=== PATIENT | male | born 2000 | race Two or more races ===

== ENCOUNTER 2024-03-25 09:12 | Emergency (ER) | payer SELFPAY ==
[~2024-03-25] VITALS: Ht 162.6 cm; Wt 69.8 kg
[2024-03-25 10:37] VITALS: BP 125/79; PULSE 74; RESP 18; TEMP 98.4; O2SAT 99
[2024-03-25] MEDS ORDERED: AMOX875T3 PO (11:23)
[2024-03-25] MEDS ORDERED: IBUP-1456 PO (11:23)
== END 2024-03-25 11:27 | disposition home or self-care (01) ==
LOC: ER 09:12
DX: S16.1XXA Strain of muscle, fascia and tendon at neck level, initial encounter (principal); H66.92 Otitis media, unspecified, left ear; Z79.1 Long term (current) use of non-steroidal anti-inflammatories (NSAID); Z79.2 Long term (current) use of antibiotics; X58.XXXA Exposure to other specified factors, initial encounter; Y93.89 Activity, other specified; Y92.89 Other specified places as the place of occurrence of the external cause; Y99.8 Other external cause status
CPT/HCPCS: 72040

== ENCOUNTER 2024-08-08 08:46 | Emergency (ER) | payer MEDICAID, OTHER ==
[~2024-08-08] VITALS: Ht 165.1 cm; Wt 69.8 kg
[~2024-08-08 08:46] MED LIST: AMOX875T3 PO; IBUP-1456 PO
[2024-08-08 09:16] LABS: Basophils # (auto) 0 10 ^3/uL (0-0.2); Basophils % (auto) 0.6 % (0.0-2.0); Eosinophils # (auto) 0 10 ^3/uL (0-0.8); Eosinophils % (auto) 1.4 % (0.0-7.0); Hemoglobin 17.5 g/dL (13.5-17.5); Lymphocytes # (auto) 1.1 10 ^3/uL (0.4-5.4); Mean Corpuscular Hemoglobin 33.6 pg (28.0-32.0); Mean Corpuscular Hgb Conc. 35.8 g/dL (32.0-36.0); Mean Corpuscular Volume 93.8 fL (80.0-100.0); Monocytes # (auto) 0.4 10 ^3/uL (0-1.3); Monocytes % (auto) 10.8 % (0.0-12.0); Neutrophils # (auto) 2.1 10 ^3/uL (1.6-8.6); Neutrophils % (auto) 57.2 % (37.0-80.0); Nucleated Red Blood Cells % 0.1 %; Platelet Count (auto) 134 10^3/uL (140-450); Red Blood Cells 5.22 10^6/uL (4.5-5.90); Red Cell Distribution Width 12.6 % (11.8-14.3); White Blood Cell 3.6 10^3/uL (4.4-10.8)
[2024-08-08 09:31] LABS: Alanine Aminotransferase 97 U/L (7-40); Alkaline Phosphatase 56 U/L (46-116); Anion Gap 11 (5-15); Aspartate Aminotransferase 55 U/L (13-40); Bilirubin, Total 1.1 mg/dL (0.2-1.0); Blood Urea Nitrogen 8 mg/dL (9-23); Carbon Dioxide 24 mmol/L (20-31); Chloride 105 mmol/L (98-107); Glucose 121 mg/dL (74-106); Potassium 3.5 mmol/L (3.5-5.1); Sodium 140 mmol/L (136-145)
[2024-08-08 09:32] LABS: Total Protein 7.6 g/dL (5.7-8.2)
[2024-08-08 10:37] LABS: INR 1.08 (0.9-1.15); Partial Thromboplastin Time 26.2 SEC (24.5-34.5); Prothrombin Time 11.4 sec (9.3-11.8)
[2024-08-08 10:45] VITALS: PULSE 86; RESP 18; O2SAT 99
[2024-08-08 10:46] VITALS: BP 131/86; PULSE 86; RESP 18; TEMP 99.1; O2SAT 99
[2024-08-08 11:40] LABS: Urine Bacteria None Seen /hpf (None Seen)
[2024-08-08 11:56] LABS: Urine Blood Negative /uL (Negative); Urine Clarity Clear (Clear); Urine Color Light-Yellow (Yellow); Urine Protein, UAD Negative (Negative); Urine Specific Gravity 1.016 (1.001-1.035); Urine Urobilinogen 3 mg/dL (Negative); Urine WBC <1 /hpf (0 - 3)
== END 2024-08-08 11:54 | disposition home or self-care (01) ==
LOC: ER 08:46
DX: R07.89 Other chest pain (principal); G93.89 Other specified disorders of brain; R10.9 Unspecified abdominal pain; Z79.899 Other long term (current) drug therapy
CPT/HCPCS: 36415; 70450; 71045; 80053; 81001; 84484; 85025; 85610; 85730; 93005